=== PATIENT | male | born 1940 | race Caucasian/White ===

== ENCOUNTER → 2020-07-20 14:08 | Outpatient (CLI) | payer OTHER, SELFPAY ==
--- NOTE | 2020-07-20 15:43 | DI.ECHO.S_ITS ---
Echocardiogram Report + + :Name: KUNAL NUÑEZ Study Date: 07/20/2020 Height: 70 in : :[facility] Weight: 220 lb : : Gender: Male BSA: 2.2 m2 : :: 1940 Age: 79 yrs BP: 160/98 mmHg: :Reason For Study: CARDIAC BLOCKAGE : :Ordering Physician: AZUCENA SAMANIEGO : :CABRERA TUBBS Performed By: Annemarie Moser : :Referring: AZUCENA SAMANIEGO MD : + + Interpretation Summary The left ventricle is normal in size and wall thickness. The ejection fraction is estimated to be 60-65%. There are no obvious focal wall motion abnormalities noted but poor endocardial definition reduces the sensitivity for the detection of such. Diastolic parameters suggest probable normal left ventricular diastolic function and normal filling pressures. The right ventricle is normal in size and function. Right ventricular systolic pressure is estimated to be 23 mmHg plus the clinically estimated CVP which cannot be estimated on this exam. The left atrium is mildly dilated. Right atrial size is normal. There is mild mitral regurgitation. There is no other significant valvular heart disease. The ascending aorta is mildly enlarged. Procedure: A two-dimensional transthoracic echocardiogram with color flow and Doppler was performed. The study quality was technically adequate. The apical views were difficult to obtain and are suboptimal in quality. There is no prior echocardiogram noted for this patient. Left Ventricle: The left ventricle is normal in size and wall thickness. The ejection fraction is estimated to be 60-65%. There are no obvious focal wall motion abnormalities noted but poor endocardial definition reduces the sensitivity for the detection of such. Diastolic parameters suggest probable normal left ventricular diastolic function and normal filling pressures. Right Ventricle: The right ventricle is normal in size and function. Atria: The left atrium is mildly dilated. Right atrial size is normal. There is no Doppler evidence for an interatrial shunt. Mitral Valve: The mitral valve is normal in structure and function. There is mild mitral regurgitation. Aortic Valve: The aortic valve is trileaflet. There is mild aortic valve sclerosis. The aortic valve opens well. There is no aortic valve stenosis. There is trace aortic regurgitation. Tricuspid Valve: The tricuspid valve is normal in structure and function. Right ventricular systolic pressure is estimated to be 23 mmHg plus the clinically estimated CVP which cannot be estimated on this exam. There is mild tricuspid regurgitation. Pulmonic Valve: The pulmonic valve is not well seen, but is grossly normal. There is no pulmonic valvular regurgitation. There is no other significant valvular heart disease. Great Vessels: The aortic root is normal size. The ascending aorta is mildly enlarged. The inferior vena cava was not well visualized. Pericardium/ Pleura There is no pericardial effusion. There is no pleural effusion. MMode/2D Measurements & Calculations LVIDd: 4.2 cm LVOT diam: 2.0 cm LVIDs: 2.9 cm Ao root diam: 3.1 cm FS: 31.8 % asc Aorta Diam: 3.8 cm EPSS: 0.89 cm Ao Arch Diam (Prox Trans): 3.1 cm IVSd: 1.00 cm LVPWd: 1.1 cm LV riggs. diameter/BSA (cm/m^2): 2.0 LV sys. diameter/BSA (cm/m^2): 1.3 LA A2 area: 23.0 cm2 RA long axis: 5.7 cm LA A4 area: 22.7 cm2 RA area: 18.5 cm2 LA length (vol): 5.8 cm RA vol: 50.9 ml LA vol: 76.9 ml RA : 23.4 ml/m2 LA vol index: 35.4 ml/m2 RVD1 (basal): 3.6 cm TAPSE: 2.1 cm Doppler Measurements & Calculations Ao V2 max: 149.9 cm/sec LVOT Max Nikos: 99.6 cm/sec Ao V2 mean: 93.2 cm/sec LV V1 max P.0 mmHg Ao max P.0 mmHg LV V1 VTI: 24.3 cm Ao mean P.1 mmHg CHRISTINA(I,D): 2.6 cm2 Ao V2 VTI: 30.5 cm CHRISTINA(V,D): 2.2 cm2 sev ratio: 0.80 CHRISTINA indexed to BSA (cm^2/m^2): 1.2 MV E max nikos: 91.7 cm/sec TR max nikos: 241.8 cm/sec MV A max nikos: 80.4 cm/sec TR max P.4 mmHg MV E/A: 1.1 PA V2 max: 63.2 cm/sec Med Peak E' Nikos: 7.6 cm/sec PA V2 mean: 40.1 cm/sec E/E' med: 12.0 PA mean P.73 mmHg Lat Peak E' Nikos: 10.0 cm/sec PA pr(Accel): 22.5 mmHg E/E' lat: 9.2 E/e' average: 10.6 MV dec time: 0.25 sec SV(LVOT): 80.1 ml Reading Physician:08:10 PM
== END ==
PROVIDERS: Referring Provider Family Medicine; Visit Provider Family Medicine
DX: I08.1 Rheumatic disorders of both mitral and tricuspid valves (principal); I77.89 Other specified disorders of arteries and arterioles; I45.9 Conduction disorder, unspecified
CPT/HCPCS: 93306